=== PATIENT | female | born 1985 | race Caucasian/White ===

== ENCOUNTER 2020-12-02 09:30 | Inpatient (IN) | payer BC ==
[2020-12-02] MEDS ORDERED: DINOPROSTONE 10 MG INSERT.ER VAGINAL ONE (16:08)
[2020-12-02] MEDS ORDERED: ZOLPIDEM 5 MG TAB PO PRN (16:08)
[2020-12-02] MEDS: BUTORPHANOL 1 MG/ML 1 ML VIAL IV PRN (23:39)
[2020-12-03 00:28] LABS: Basophils % (A) 0 %; Eosinophils # (A) 0.1 k/uL (0-0.7); Eosinophils % (A) 1 %; HCT 39.3 % (34.0-46.0); Lymphocytes # (A) 2.5 k/uL (1.0-4.8); Lymphocytes % (A) 15 %; MCH 31.8 pg (25.0-35.0); MCHC 35.5 g/dL (31.0-37.0); MCV 89.4 fL (80.0-100.0); Mean Platelet Volume 7.6; Monocytes % (A) 6 %; Neutrophils # (A) 12.9 k/uL (1.3-7.7); Neutrophils % (A) 77 %; Platelet Count 322 k/uL (150-450); RBC 4.39 m/uL (3.80-5.40); RDW 14.3 % (11.5-15.5); WBC 16.8 k/uL (3.8-10.6)
[2020-12-03] MEDS: BUTORPHANOL 1 MG/ML 1 ML VIAL IV PRN ×3 (02:52→13:18)
[2020-12-03] MEDS ORDERED: METHYLERGONOVINE 0.2 MG/ML 1 ML AMP IM PRN (06:09)
[2020-12-03] MEDS ORDERED: CARBOPROST TROMETHAMINE 250 MCG/ML 1 ML AMP IM PRN (06:09)
[2020-12-03] MEDS ORDERED: TERBUTALINE 1 MG/ML VIAL SQ PRN (06:09)
[2020-12-03] MEDS ORDERED: LIDOCAINE 0.5% (PF) 5 MG/ML (50 ML SDV) SQ PRN (06:09)
[2020-12-03] MEDS ORDERED: OXYTOCIN 10 UNIT/ML 1 ML VIAL IM PRN (06:09)
[2020-12-03] MEDS ORDERED: OXYTOCIN 30 UNITS/500 ML NS 30 UNIT in SALINE 1 500ML.BAG IV SCH ×2 (06:15→18:15)
[2020-12-03] MEDS ORDERED: AMPICILLIN 2,000 MG in SODIUM CHLORIDE 0.9% 100 ML IVPB STA (07:40)
[2020-12-03] MEDS: LACTATED RINGERS 1,000 ML IV SCH ×3 (07:45→23:27)
[2020-12-03] MEDS ORDERED: SODIUM CHLORIDE 0.9% 100 ML BAG ONE (07:56)
[2020-12-03] MEDS ORDERED: ROPIVACAINE 5MG/ML 20ML VIAL ONE (07:56)
[2020-12-03] MEDS ORDERED: fentaNYL (PF) 50 MCG/ML 5 ML AMP ONE (07:56)
--- NOTE | 2020-12-03 10:31 | P.HPOB ---
History of Present Illness H&P Date: 12/02/20 Chief Complaint: induction of labor 35-year-old presents at 40 weeks and 1 day for induction of labor. Her cervix is 1 cm dilated, thick, -3 station. She is olvin irregularly. heart tones 135 with moderate variability and reactive. Review of Systems All systems: negative Constitutional: Denies chills, Denies fever Eyes: denies blurred vision, denies pain Ears, nose, mouth and throat: Denies headache, Denies sore throat Cardiovascular: Denies chest pain, Denies shortness of breath Respiratory: Denies cough Gastrointestinal: Denies abdominal pain, Denies diarrhea, Denies nausea, Denies vomiting Genitourinary: Denies dysuria, Denies hematuria Musculoskeletal: Denies myalgias Integumentary: Denies pruritus, Denies rash Neurological: Denies numbness, Denies weakness Psychiatric: Denies anxiety, Denies depression Endocrine: Denies fatigue, Denies weight change Past Medical History Past Medical History: No Reported History Additional Past Medical History / Comment(s): Obstetric history: This is her first and had care with me since the first trimester. She is seen [facility] for advanced maternal age. Blood type O+, antibodies negative, HIV nonreactive, rubella immune, RPR nonreactive, hepatitis B negative, normal AFP. Negative toxoplasma. GBS positive. History of Any Multi-Drug Resistant Organisms: None Reported Past Surgical History: No Surgical Hx Reported Past Anesthesia/Blood Transfusion Reactions: No Reported Reaction Past Psychological History: No Psychological Hx Reported Smoking Status: Never smoker Past Alcohol Use History: None Reported Past Drug Use History: None Reported - Past Family History Mother Family Medical History: Asthma Medications and Allergies Home Medications Medication Instructions Recorded Confirmed Type Pnv,Calcium 72/Iron/Folic Acid 1 each PO DAILY 12/02/20 12/02/20 History [ Plus Tablet] Allergies Allergy/AdvReac Type Severity Reaction Status Date / Time No Known Allergies Allergy Verified 12/02/20 16:08 Exam Osteopathic Statement: *. No significant issues noted on an osteopathic structural exam other than those noted in the History and Physical/Consult. Vital Signs Temp Pulse Resp BP 12/02/20 16:14 96.8 F L 100 14 131/68 Intake and Output 03/31/21 04/01/21 04/01/21 22:59 06:59 14:59 Other: # Voids 2 1 Weight 100.698 kg Heart: Regular rate and rhythm Lungs: Clear to auscultation bilaterally Abdomen: Soft, nontender Extremities: Negative Homans sign Results Result Diagrams: 12/02/20 23:45 Abnormal Lab Results - Last 24 Hours (Table) 12/02/20 Range/Units 23:45 WBC 16.8 H (3.8-10.6) k/uL Neutrophils # 12.9 H (1.3-7.7) k/uL Assessment and Plan (1) Encounter for induction of labor Current Visit: Yes Status: Acute Code(s): Z34.90 - ENCNTR FOR SUPRVSN OF NORMAL , UNSP, UNSP TRIMESTER SNOMED Code(s): 329141566 (2) Advanced maternal age (AMA) in Current Visit: Yes Status: Acute Code(s): EST3607 - SNOMED Code(s): 674108084 Plan: 1. Induction of labor with Cervidil tonight and then Pitocin and amniotomy in the morning. 2. Anticipate normal vaginal delivery
[2020-12-03] MEDS: AMPICILLIN 1,000 MG in SODIUM CHLORIDE 0.9% 50 ML IVPB SCH (12:50)
[2020-12-03] MEDS ORDERED: CITRIC ACID-SODIUM CITRATE 15 ML CUP PO ONE (16:56)
[2020-12-03] MEDS ORDERED: OXYTOCIN 10 UNIT/ML 1 ML VIAL ONE (17:15)
[2020-12-03] MEDS ORDERED: MORPHINE SULFATE (PF) 0.3 MG/0.3 ML SYR ONE (17:15)
[2020-12-03] MEDS ORDERED: KETOROLAC 15 MG/ML 1 ML VIAL ONE (17:15)
[2020-12-03] MEDS ORDERED: ONDANSETRON 4 MG/2 ML VIAL ONE (17:15)
[2020-12-03] MEDS ORDERED: fentaNYL (PF) 50 MCG/ML 2 ML AMP ONE (17:15)
[2020-12-03] MEDS ORDERED: LANOLIN CREAM 5 GM TUBE TOPICAL PRN (18:03)
[2020-12-03] MEDS ORDERED: METOCLOPRAMIDE 5 MG/ML 2 ML VIAL IVP PRN (18:03)
[2020-12-03] MEDS ORDERED: diphenhydrAMINE 50 MG/ML 1 ML VIAL IVP PRN ×2 (18:03)
[2020-12-03] MEDS ORDERED: ONDANSETRON 4 MG/2 ML VIAL IVP PRN (18:03)
[2020-12-03] MEDS ORDERED: NALOXONE 0.4 MG/ML 1 ML VIAL IV PRN (18:03)
[2020-12-03] MEDS ORDERED: diphenhydrAMINE 25 MG CAP PO PRN (18:03)
[2020-12-03] MEDS ORDERED: diphenhydrAMINE 50 MG CAP PO PRN (18:03)
--- NOTE | 2020-12-03 18:09 | P.OP ---
Date of Procedure: 12/03/20 Preoperative Diagnosis: 1. 40 weeks 2 days 2. arrest of descent Postoperative Diagnosis: 1. 40 weeks 2 days 2. arrest of descent Procedure(s) Performed: Primary low transverse Anesthesia: spinal Surgeon: Patrica Gastelum Sports Medicine Coordinator #1: Christopher Yanez Estimated Blood Loss (ml): 500 IV fluids (ml): 700 Urine output (ml): 300 Pathology: none sent Condition: stable Disposition: floor Indications for Procedure: 35-year-old presented at 40 weeks and 1 day for induction of labor. She was 1 cm dilated, 50% effaced, and -2 station. heart tones 135 with moderate variability and reactive. Cervidil was placed in the morning she was 3 cm, 80% effaced, -2 station. Pitocin was started and amniotomy performed. She progressed rather quickly to 8 cm at 1 PM. She was still 8 cm and -3 station at 5 PM despite adequate contractions. Informed consent was obtained and section was called. Operative Findings: Viable female infant, Apgars 9, 9, weight 7 lbs. 5 oz. Asynclitic lie. Normal uterus, tubes, ovaries Description of Procedure: Patient was taken to the operating room where spinal anesthesia was found be adequate. She was prepped and draped in normal sterile fashion in dorsal supine position with a leftward tilt. Pfannenstiel skin incision was made the scalpel and carried through to the underlying layer of fascia with the scalpel. Fascia was incised in midline and carried bilaterally with the Boateng scissors. The superior aspect of the fascial incision was grasped with [place] clamps elevated and the underlying rectus muscles dissected off with the Boateng's. Attention was then turned to inferior aspect of same incision which in a similar fashion was grasped tented up and the underlying rectus muscles dissected off with the Boateng's. The rectus muscles were the midline and the peritoneum was identified tented up and entered sharply with the scalpel. The incision was extended superiorly and inferiorly with good visualization of the bladder. The bladder blade was inserted and the vesicouterine peritoneum was incised the Metzenbaums then carried bilaterally and bladder flap created digitally. A low transverse incision was then made on the uterus with the scalpel. This was carried bilaterally and digital manner. 's head delivered atraumatically, nose and mouth bulb suctioned, cord clamped and cut, infant handed off to waiting nurses. Apgars 9,9, weight 7 lbs. 5 oz. Placenta delivered manually, intact with three-vessel cord. The uterus is exteriorized and cleared of all clots and debris. The uterine incision was closed with 0 Vicryl in a running locked fashion. Second layer of the same sutures used in imbricating fashion to obtain excellent hemostasis. Bladder flap was then reapproximated using 2-0 Vicryl in a running fashion. Both ovaries and tubes appeared normal. The uterus was placed back into the abdomen. The peritoneum was reapproximated using 2-0 Vicryl in a running fashion. The muscles were reapproximated using 2- 0 Vicryl in interrupted fashion. The fascia was reapproximated using 0 Vicryl in a running fashion. The subcutaneous tissues closed with 3-0 Vicryl running fashion. The skin was closed ranjit. Patient tolerated the procedure well, sponge and instrument counts were correct times 2 and she was taken to the recovery room in stable condition.
[2020-12-03] MEDS: SENNOSIDES-DOCUSATE SODIUM 1 EACH TAB PO SCH (19:29)
[2020-12-03] MEDS: ACETAMINOPHEN TAB 500 MG TAB PO SCH (19:29)
[2020-12-04] MEDS: KETOROLAC 15 MG/ML 1 ML VIAL IVP SCH ×3 (00:28→13:39)
[2020-12-04] MEDS: ACETAMINOPHEN TAB 500 MG TAB PO SCH ×3 (03:32→20:16)
[2020-12-04] MEDS: AMPICILLIN 1,000 MG in SODIUM CHLORIDE 0.9% 50 ML IVPB SCH (03:39)
[2020-12-04] MEDS: LACTATED RINGERS 1,000 ML IV SCH (05:14)
--- NOTE | 2020-12-04 06:03 | P.PN ---
Progress Note - Text Progress Note Date: 12/04/20 Postoperative day 1 status post section under spinal anesthesia and in trathecal Duramorph for postoperative analgesia.The patient is doing well, there is mild generalized skin itching. There are no other anesthesia related complications. The patient denies any paresthesia or weakness in the lower extremities. Further management as per the patient primary team.
[2020-12-04 06:19] LABS: Basophils % (A) 0 %; Eosinophils # (A) 0.1 k/uL (0-0.7); Eosinophils % (A) 0 %; HCT 31.8 % (34.0-46.0); Lymphocytes # (A) 2.6 k/uL (1.0-4.8); Lymphocytes % (A) 15 %; MCH 30.8 pg (25.0-35.0); MCHC 33.8 g/dL (31.0-37.0); MCV 91.1 fL (80.0-100.0); Mean Platelet Volume 7.2; Monocytes # (A) 0.8 k/uL (0-1.0); Monocytes % (A) 5 %; Neutrophils # (A) 14.2 k/uL (1.3-7.7); Neutrophils % (A) 79 %; Platelet Count 256 k/uL (150-450); RBC 3.49 m/uL (3.80-5.40); RDW 14.9 % (11.5-15.5); WBC 17.9 k/uL (3.8-10.6)
[2020-12-04 06:39] LABS: HGB 10.8 gm/dL (11.4-16.0)
--- NOTE | 2020-12-04 07:28 | P.PNOBGPC ---
Subjective - Subjective Principal diagnosis: S/P 1*LTCS POD #1 Interval history: Patient seen and examined. Her pain is well-controlled. Denies nausea, vomiting, chest pain, shortness of breath or any calf pain. Patient reports: Reports appetite normal, Reports voiding normally, Reports pain well controlled, Reports ambulating normally : doing well Objective - Vital Signs Latest vital signs: Vital Signs Temp Pulse Resp BP Pulse Ox 12/04/20 04:30 97.9 F 76 16 108/60 97 12/04/20 00:00 98.3 F 97 16 115/56 98 12/03/20 20:14 98.0 F 67 16 106/68 12/03/20 20:00 97.8 F 69 16 108/63 12/03/20 19:14 97.8 F 75 16 105/64 12/03/20 18:55 74 16 110/51 100 12/03/20 18:44 80 18 109/55 99 12/03/20 18:28 82 18 106/57 96 12/03/20 18:14 97.0 F L 90 16 130/60 97 Intake and Output 12/03/20 12/04/20 12/04/20 22:59 06:59 14:59 Intake Total 300 500 Output Total 1350 300 Balance -1050 200 Intake: IV 200 Oral 100 500 Output: Urine 850 300 Uretheral (Rodriguez) 200 300 Estimated Blood Loss 500 - Exam Lungs: bilateral: normal Chest: Normal S1, Normal S2 Extremities: Present: normal Abdomen: Present: normal appearance, soft. Absent: distention, tenderness Incision: Present: normal, dry, intact Uterus: Present: normal, firm - Labs Labs: Abnormal Lab Results - Last 24 Hours (Table) 12/04/20 Range/Units 00:44 WBC 17.9 H (3.8-10.6) k/uL RBC 3.49 L (3.80-5.40) m/uL Hgb 10.8 L D (11.4-16.0) gm/dL Hct 31.8 L (34.0-46.0) % Neutrophils # 14.2 H (1.3-7.7) k/uL Assessment and Plan (1) Encounter for induction of labor Current Visit: Yes Status: Resolved Code(s): Z34.90 - ENCNTR FOR SUPRVSN OF NORMAL , UNSP, UNSP TRIMESTER SNOMED Code(s): 611874918 (2) Advanced maternal age (AMA) in Current Visit: Yes Status: Resolved Code(s): OCR7843 - SNOMED Code(s): 405912579 (3) Status post primary low transverse section Current Visit: Yes Status: Acute Code(s): Z98.891 - HISTORY OF UTERINE SCAR FROM PREVIOUS SURGERY SNOMED Code(s): 748331808 Plan: 1. Increase ambulation 2. By mouth pain medication 3. Regular diet
[2020-12-04] MEDS: SENNOSIDES-DOCUSATE SODIUM 1 EACH TAB PO SCH ×2 (08:29→20:16)
[2020-12-04 20:46] VITALS: RESP 16
[2020-12-05] MEDS: ACETAMINOPHEN TAB 500 MG TAB PO SCH ×3 (00:08→06:12)
[2020-12-05] MEDS ORDERED: IBUPROFEN 600 MG TAB PO SCH (05:04)
[2020-12-05 08:00] VITALS: BP 107/70; PULSE 98; TEMP 98
[2020-12-05] MEDS: SENNOSIDES-DOCUSATE SODIUM 1 EACH TAB PO SCH (08:05)
--- NOTE | 2020-12-05 10:45 | P.DS ---
Providers Date of admission: 12/02/20 15:55 Expected date of discharge: 12/05/20 Attending physician: Patrica Gastelum Primary care physician: Stated None Hospital Course: Franchesca is doing very well postop day 2. She is ambulating, voiding, and she is tolerating her diet. She voices no complaints and is requesting discharge home today. As her ranjit and in less than 48 hours will plan to leave them in for another 2 days and she will have them removed in the office on Monday or Monday. She will call on Monday to schedule. Prescription for [place] and Motrin were forwarded to her pharmacy and she relates that she Alfredo has a breast pump. Otherwise on physical exam vital signs are stable and afebrile. Heart regular, lungs clear, extremities are without pain. Abdomen is soft, uterus is firm, incision is clean dry and intact and appears to be healing well. Assessment postoperative day 2. Plan as above. Discharge instructions were thoroughly reviewed and all questions were answered for her prior to her discharge. Patient Condition at Discharge: Good Plan - Discharge Summary New Discharge Prescriptions: New Ibuprofen [Motrin] 600 mg PO Q6HR PRN #30 tab PRN Reason: Pain HYDROcodone/APAP 5-325MG [[place] 5-325] 1 tab PO Q4HR PRN #30 tab PRN Reason: Pain No Action Pnv,Calcium 72/Iron/Folic Acid [ Plus Tablet] 1 each PO DAILY Discharge Medication List Pnv,Calcium 72/Iron/Folic Acid [ Plus Tablet] 1 each PO DAILY 12/02/20 [History] HYDROcodone/APAP 5-325MG [[place] 5-325] 1 tab PO Q4HR PRN #30 tab 12/05/20 [Rx] Ibuprofen [Motrin] 600 mg PO Q6HR PRN #30 tab 12/05/20 [Rx] Follow up Appointment(s)/Referral(s): Patrica Gastelum DO [Doctor of Osteopathic Medicine] - 12/07/20 Activity/Diet/Wound Care/Special Instructions: No heavy lifting, limit stairs and driving, and pelvic rest. If any high temperatures, heavy bleeding, or severe pain call my office. Follow up with Dr. Gastelum on Monday for staple removal Discharge Disposition: HOME SELF-CARE
== END 2020-12-05 13:37 | disposition home or self-care (01) | DRG 788 ==
LOC: 4FBP 15:55
PROVIDERS: ADMIT Obstetrics & Gynecology; ATTEND Obstetrics & Gynecology
PROC: 10907ZC Drainage of Amniotic Fluid, Therapeutic from Products of Conception, Via Natural or Artificial Opening (ICD-10-PCS; principal; 2020-12-03 17:20)
PROC: 3E033VJ Introduction of Other Hormone into Peripheral Vein, Percutaneous Approach (ICD-10-PCS; principal; 2020-12-03 17:20)
PROC: 0U7C7ZZ Dilation of Cervix, Via Natural or Artificial Opening (ICD-10-PCS; principal; 2020-12-03 17:20)
PROC: 10D00Z1 Extraction of Products of Conception, Low, Open Approach (ICD-10-PCS; principal; 2020-12-03 17:20)
DX: O99.824 Streptococcus B carrier state complicating childbirth (principal); O62.1 Secondary uterine inertia; Z3A.40 40 weeks gestation of pregnancy; Z37.0 Single live birth; Z79.899 Other long term (current) drug therapy; Z82.5 Family history of asthma and other chronic lower respiratory diseases
CPT/HCPCS: 85025; 86850; 86900; 86901

== ENCOUNTER → 2022-06-20 | Outpatient (CLI) | payer BC ==
[2022-06-20 19:04] LABS: Basophils # (A) 0.04 X 10*3/uL (0.00-0.10); Basophils % (A) 0.5 %; Eosinophils # (A) 0.13 X 10*3/uL (0.04-0.35); Eosinophils % (A) 1.5 %; HGB 12.9 g/dL (12.0-15.0); Immature Grans, Automated 0.4 %; Lymphocytes # (A) 2.14 X 10*3/uL (0.90-5.00); MCH 29.9 pg (27.0-32.0); MCHC 33.9 g/dL (32.0-37.0); Mean Platelet Volume 9.6 fL (9.5-12.2); Monocytes # (A) 0.59 X 10*3/uL (0.20-1.00); Monocytes % (A) 6.9 %; NRBC Per 100 WBC 0 /100 WBCS (0.0-0.0); Neutrophils # (A) 5.63 X 10*3/uL (1.80-7.70); Neutrophils % (A) 65.7 %; Platelet Count 287 X 10*3/uL (140-440); RBC 4.32 X 10*6/uL (4.10-5.20); RDW 14.2 % (11.5-14.5); WBC 8.56 X 10*3/uL (4.50-10.00)
== END | disposition home or self-care (01) ==
LOC: LABPAT 11:17
PROVIDERS: ATTEND Obstetrics & Gynecology
DX: Z01.812 Encounter for preprocedural laboratory examination (principal)
CPT/HCPCS: 85025

== ENCOUNTER 2022-06-23 05:57 | Day surgery (SDC) | payer BC ==
[~2022-06-23 05:57] MED LIST: DEXAMETHASONE SOD PHOSPHATE 4 MG/ML 1 ML VIAL IV ONE; LIDOCAINE 1% (10MG/ML) FOR IV START INTRADERMA PRN; MIDAZOLAM 2 MG/2 ML VIAL IV PRN; ONDANSETRON 4 MG/2 ML VIAL IVP ONE; Pre Op ABX Message 1 EACH MISC MISCELLANE ONE
--- NOTE | 2022-06-23 06:03 | P.HPOB ---
History of Present Illness H&P Date: 06/23/22 Chief Complaint: missed 36 year old presents for suction D&C for missed . Review of Systems All systems: negative Constitutional: Denies chills, Denies fever Eyes: denies blurred vision, denies pain Ears, nose, mouth and throat: Denies headache, Denies sore throat Cardiovascular: Denies chest pain, Denies shortness of breath Respiratory: Denies cough Gastrointestinal: Denies abdominal pain, Denies diarrhea, Denies nausea, Denies vomiting Genitourinary: Denies dysuria, Denies hematuria Musculoskeletal: Denies myalgias Integumentary: Denies pruritus, Denies rash Neurological: Denies numbness, Denies weakness Psychiatric: Denies anxiety, Denies depression Endocrine: Denies fatigue, Denies weight change Past Medical History Past Medical History: No Reported History History of Any Multi-Drug Resistant Organisms: None Reported Past Surgical History: Section Past Anesthesia/Blood Transfusion Reactions: No Reported Reaction Additional Past Anesthesia/Blood Transfusion Reaction / Comment(s): epidural didnt work during c section had spinal. Smoking Status: Never smoker - Past Family History Mother Family Medical History: Asthma Father Family Medical History: No Reported History Medications and Allergies Home Medications Medication Instructions Recorded Confirmed Type Ibuprofen [Motrin] 600 mg PO Q6HR PRN #30 tab 12/05/20 06/22/22 Rx Esomeprazole Magnesium [NexIUM 20 mg PO DAILY PRN 06/22/22 06/22/22 History 24Hr] Allergies Allergy/AdvReac Type Severity Reaction Status Date / Time No Known Allergies Allergy Verified 06/22/22 08:09 Exam Osteopathic Statement: *. No significant issues noted on an osteopathic structural exam other than those noted in the History and Physical/Consult. Intake and Output 06/22/22 06/22/22 06/23/22 14:59 22:59 06:59 Other: Weight 90.718 kg HEart: RRR Lungs: CTAB Abdomen: soft, nontender Extremeties: neg dawn's Assessment and Plan (1) Missed Current Visit: Yes Status: Acute Code(s): O02.1 - MISSED SNOMED Code(s): 51914929 Plan: 1. suction D&C
[2022-06-23] MEDS: LACTATED RINGERS 1,000 ML IV SCH ×2 (06:40→07:02)
[2022-06-23] MEDS ORDERED: fentaNYL (PF) 50 MCG/ML 2 ML AMP ONE (06:58)
[2022-06-23] MEDS ORDERED: KETOROLAC 15 MG/ML 1 ML VIAL ONE (06:58)
[2022-06-23] MEDS ORDERED: MIDAZOLAM 2 MG/2 ML VIAL ONE (06:58)
[2022-06-23] MEDS ORDERED: PROPOFOL 10 MG/ML 20 ML VIAL IV ONE (06:58)
[2022-06-23] MEDS ORDERED: LIDOCAINE 2% INJ 20 MG/ML (2 ML VIAL) ONE (06:58)
[2022-06-23] MEDS ORDERED: HYDROmorphone 0.5 MG/0.5 ML SYRINGE IVP PRN (07:00)
[2022-06-23 07:33] VITALS: RESP 16; TEMP 98.4
--- NOTE | 2022-06-23 07:38 | P.OP ---
Date of Procedure: 06/23/22 Preoperative Diagnosis: 1. missed Postoperative Diagnosis: 1. missed Procedure(s) Performed: Suction D&C Anesthesia: MAC Surgeon: Patrica Gastelum Estimated Blood Loss (ml): 100 IV fluids (ml): 300 Urine output (ml): 15 Pathology: other (Products of conception) Condition: stable Disposition: PACU Description of Procedure: Patient was taken to the operating room and general anesthesia was obtained without difficulty. She is prepped and draped in normal sterile fashion dorsal lithotomy position, legs placed in candycane stirrups. Bladder was drained of all urine. Weighted speculum placed in the vagina and the anterior lip of the cervix was grasped with an [place] clamp. The cervix was dilated to #8 Hegar dilator. A #8 curved suction curet was introduced into the uterus and passed several times removing tissue and blood. Sharp curet was gently used to ensure all tissue had been removed. The suction curet was introduced a few more times. Hemostasis was assured. Patient to our procedure well. Sponge initial counts correct 2. She was taken to recovery in stable condition.
[2022-06-23 08:22] VITALS: BP 125/76; PULSE 99
== END 2022-06-23 08:45 | disposition home or self-care (01) ==
LOC: OR 05:57
PROVIDERS: ATTEND Obstetrics & Gynecology
DX: O02.1 Missed abortion (principal); Z98.891 History of uterine scar from previous surgery; Z82.5 Family history of asthma and other chronic lower respiratory diseases; Z79.899 Other long term (current) drug therapy
CPT/HCPCS: 86900; 86901; 88305; 86850; 59820; J2250; J1100; J2405; J3010; J1885; J2704; J2001

== ENCOUNTER 2023-11-01 06:00 | Inpatient (IN) | payer BC, OTHER ==
[2023-10-30 16:12] VITALS: BMI 37.4
[2023-11-01] MEDS ORDERED: METHYLERGONOVINE 0.2 MG/ML 1 ML AMP IM PRN (06:17)
[2023-11-01] MEDS ORDERED: TRANEXAMIC 1,000 MG/100ML-NACL 1,000 MG in EMPTY BAG 1 BAG IV PRN (06:17)
[2023-11-01] MEDS ORDERED: OXYTOCIN 10 UNIT/ML 1 ML VIAL IM PRN (06:17)
[2023-11-01] MEDS ORDERED: miSOPROStoL 200 MCG TAB PO PRN (06:17)
[2023-11-01] MEDS ORDERED: CARBOPROST TROMETHAMINE 250 MCG/ML 1 ML AMP IM PRN (06:17)
[2023-11-01 06:43] LABS: Basophils % (A) 0 %; Eosinophils # (A) 0.1 k/uL (0-0.7); Eosinophils % (A) 1 %; HCT 35.9 % (34.0-46.0); HGB 12.1 gm/dL (11.4-16.0); Lymphocytes # (A) 2.2 k/uL (1.0-4.8); Lymphocytes % (A) 18 %; MCH 30.7 pg (25.0-35.0); MCHC 33.8 g/dL (31.0-37.0); MCV 90.9 fL (80.0-100.0); Mean Platelet Volume 7.3; Monocytes # (A) 0.7 k/uL (0-1.0); Monocytes % (A) 6 %; Neutrophils # (A) 8.9 k/uL (1.3-7.7); Neutrophils % (A) 73 %; Platelet Count 263 k/uL (150-450); RBC 3.95 m/uL (3.80-5.40); RDW 14.3 % (11.5-15.5); WBC 12.3 k/uL (3.8-10.6)
[2023-11-01] MEDS: CITRIC ACID-SODIUM CITRATE 15 ML CUP PO ONE (07:45)
--- NOTE | 2023-11-01 07:48 | P.HPOB ---
History of Present Illness H&P Date: 11/01/23 Chief Complaint: repeat low transverse with TL 38 year old presents at 39 weeks for repeat low transverse with tubal ligation. Review of Systems All systems: negative Constitutional: Denies chills, Denies fever Eyes: denies blurred vision, denies pain Ears, nose, mouth and throat: Denies headache, Denies sore throat Cardiovascular: Denies chest pain, Denies shortness of breath Respiratory: Denies cough Gastrointestinal: Denies abdominal pain, Denies diarrhea, Denies nausea, Denies vomiting Genitourinary: Denies dysuria, Denies hematuria Musculoskeletal: Denies myalgias Integumentary: Denies pruritus, Denies rash Neurological: Denies numbness, Denies weakness Psychiatric: Denies anxiety, Denies depression Endocrine: Denies fatigue, Denies weight change Past Medical History Past Medical History: No Reported History Additional Past Medical History / Comment(s): heart murmur,varicose veins, missed AB,. Obstetric history: Blood type O+, antibodies negative, HIV nonreactive, rubella immune, RPR nonreactive, hepatitis B negative, normal AFP. Negative toxoplasma. History of Any Multi-Drug Resistant Organisms: None Reported Past Surgical History: Section Additional Past Surgical History / Comment(s): D&C Past Anesthesia/Blood Transfusion Reactions: No Reported Reaction Additional Past Anesthesia/Blood Transfusion Reaction / Comment(s): no hx blood transfusion Past Psychological History: Anxiety Smoking Status: Never smoker Past Alcohol Use History: None Reported Past Drug Use History: None Reported - Past Family History Mother Family Medical History: Asthma Father Family Medical History: No Reported History Medications and Allergies Home Medications Medication Instructions Recorded Confirmed Type RX: FLUoxetine HCL 20 mg PO HS 10/30/23 11/01/23 History Vit No.179/Iron/Folic 1 each PO 11/01/23 History [ Tablet] Allergies Allergy/AdvReac Type Severity Reaction Status Date / Time No Known Allergies Allergy Verified 11/01/23 06:15 Exam Osteopathic Statement: *. No significant issues noted on an osteopathic structural exam other than those noted in the History and Physical/Consult. Vital Signs Temp Pulse Resp BP Pulse Ox 11/01/23 06:15 99.1 F 98 16 126/74 97 Intake and Output 10/31/23 11/01/2324 22:59 06:59 14:59 Other: Weight 98.883 kg Heart: Regular rate and rhythm Lungs: Clear to auscultation bilaterally Abdomen: Soft, nontender Extremities: Negative Homans sign Results Result Diagrams: 11/01/23 06:20 Abnormal Lab Results - Last 24 Hours (Table) 11/01/23 Range/Units 06:20 WBC 12.3 H (3.8-10.6) k/uL Neutrophils # 8.9 H (1.3-7.7) k/uL Assessment and Plan (1) Previous section Current Visit: Yes Status: Acute Code(s): Z98.891 - HISTORY OF UTERINE SCAR FROM PREVIOUS SURGERY SNOMED Code(s): 823835847 (2) 39 weeks gestation of Current Visit: Yes Status: Acute Code(s): Z3A.39 - 39 WEEKS GESTATION OF SNOMED Code(s): 99240814 (3) Advanced maternal age (AMA), 40 years or greater Current Visit: Yes Status: Acute Code(s): OVA7298 - SNOMED Code(s): 087721993 (4) Family planning Current Visit: Yes Status: Acute Code(s): Z30.09 - ENCOUNTER FOR OTH GENERAL CNSL AND ADVICE ON CONTRACEPTION SNOMED Code(s): 584092786 Plan: 1. repeat low transverse with tubal ligation
[2023-11-01] MEDS ORDERED: OXYTOCIN 30 UNITS/500 ML NS BAG IV ONE (07:55)
[2023-11-01] MEDS ORDERED: NALBUPHINE 10 MG/ML (10 ML MDV) ONE (07:55)
[2023-11-01] MEDS ORDERED: MORPHINE SULFATE (PF) 0.3 MG/0.3 ML SYR ONE (07:55)
[2023-11-01] MEDS ORDERED: KETOROLAC 15 MG/ML 1 ML VIAL ONE (07:55)
[2023-11-01] MEDS ORDERED: ONDANSETRON 4 MG/2 ML VIAL ONE (07:55)
[2023-11-01] MEDS ORDERED: diphenhydrAMINE 25 MG CAP PO PRN (08:46)
[2023-11-01] MEDS ORDERED: ZOLPIDEM 5 MG TAB PO PRN (08:46)
[2023-11-01] MEDS ORDERED: NALOXONE 0.4 MG/ML 1 ML VIAL IV PRN (08:46)
[2023-11-01] MEDS ORDERED: METOCLOPRAMIDE 5 MG/ML 2 ML VIAL IVP PRN (08:46)
[2023-11-01] MEDS ORDERED: LANOLIN CREAM 1 GM TUBE TOPICAL PRN (08:46)
[2023-11-01] MEDS ORDERED: diphenhydrAMINE 50 MG/ML 1 ML VIAL IVP PRN ×2 (08:46)
[2023-11-01] MEDS ORDERED: diphenhydrAMINE 50 MG CAP PO PRN (08:46)
[2023-11-01] MEDS ORDERED: ONDANSETRON 4 MG/2 ML VIAL IVP PRN (08:46)
--- NOTE | 2023-11-01 08:46 | P.OP ---
Date of Procedure: 11/01/23 Preoperative Diagnosis: 1. at 39 weeks 2. previous 3. family planning Postoperative Diagnosis: same Procedure(s) Performed: Repeat low transverse with tubal ligation Anesthesia: spinal Surgeon: Patrica Gastelum Package Collector #1: Christopher Yanez Estimated Blood Loss (ml): 820 IV fluids (ml): 700 Urine output (ml): 150 Pathology: other (segments of bilateral fallopian tubes) Condition: stable Disposition: floor Operative Findings: Normal uterus, tubes, ovaries. Viable female, Apgars 8, 9, weight 7 lbs. 7 oz. Description of Procedure: Patient was taken to the operating room where spinal anesthesia was found be adequate. She was prepped and draped in normal sterile fashion in dorsal supine position with a leftward tilt. Pfannenstiel skin incision was made the scalpel and carried through to the underlying layer of fascia with the scalpel. Fascia was incised in midline and carried bilaterally with the Boateng scissors. The superior aspect of the fascial incision was grasped with [place] clamps elevated and the underlying rectus muscles dissected off with the Boateng's. Attention was then turned to inferior aspect of same incision which in a similar fashion was grasped tented up and the underlying rectus muscles dissected off with the Boateng's. The rectus muscles were the midline and the peritoneum was identified tented up and entered sharply with the scalpel. The incision was extended superiorly and inferiorly with good visualization of the bladder. The bladder blade was inserted and the vesicouterine peritoneum was incised the Met zenbaums then carried bilaterally and bladder flap created digitally. A low transverse incision was then made on the uterus with the scalpel. This was carried bilaterally and digital manner. Infant's head delivered atraumatically, nose and mouth bulb suctioned, cord clamped and cut, infant handed off to waiting nurses. Apgars 8,9, weight 7 lbs. 7 oz. Placenta delivered manually, intact with three-vessel cord. The uterus is exteriorized and cleared of all clots and debris. The uterine incision was closed with 0 Vicryl in a running locked fashion. Second layer of the same sutures used in imbricating fashion to obtain excellent hemostasis. Both ovaries and tubes appeared normal. The right fallopian tube was grasped with a hemostat and a window was made in the mesosalpinx with the Bovie. The right fallopian tube was doubly ligated and a segment was removed. Pedicles were cauterized with the Bovie. The left fallopian tube was grasped with hemostat and a window was made in the mesosalpinx with the Bovie. The left fallopian tube was doubly ligated and a segment was removed. Pedicles were cauterized with the Bovie. The uterus was placed back into the abdomen. The peritoneum was reapproximated using 2-0 Vicryl in a running fashion. The muscles were reapproximated using 2-0 Vicryl in interrupted fashion. The fascia was reapproximated using 0 Vicryl in a running fashion. The subcutaneous tissues closed with 3-0 Vicryl running fashion. The skin was closed ranjit. Patient tolerated the procedure well, sponge and instrument counts were correct times 2 and she was taken to the recovery room in stable condition.
[2023-11-01] MEDS: OXYTOCIN 30 UNITS/500 ML NS 30 UNIT in SALINE 1 500ML.BAG IV SCH (08:57)
[2023-11-01] MEDS ORDERED: OXYTOCIN 30 UNITS/500 ML NS 30 UNIT in SALINE 1 500ML.BAG IV SCH (09:00)
[2023-11-01] MEDS: ACETAMINOPHEN TAB 500 MG TAB PO SCH (12:34)
[2023-11-01] MEDS: LACTATED RINGERS 1,000 ML IV SCH (12:35)
[2023-11-01] MEDS: KETOROLAC 15 MG/ML 1 ML VIAL IVP SCH (15:49)
[2023-11-01] MEDS: IBUPROFEN 600 MG TAB PO SCH (16:17)
[2023-11-01] MEDS: SENNOSIDES-DOCUSATE SODIUM 1 EACH TAB PO SCH (21:48)
[2023-11-02 05:56] LABS: Basophils # (A) 0.1 k/uL (0-0.2); Basophils % (A) 1 %; Eosinophils # (A) 0.2 k/uL (0-0.7); Eosinophils % (A) 2 %; HCT 29.2 % (34.0-46.0); HGB 10.1 gm/dL (11.4-16.0); Lymphocytes # (A) 1.8 k/uL (1.0-4.8); Lymphocytes % (A) 16 %; MCH 32.2 pg (25.0-35.0); MCHC 34.7 g/dL (31.0-37.0); MCV 92.8 fL (80.0-100.0); Mean Platelet Volume 8.6; Monocytes # (A) 0.6 k/uL (0-1.0); Monocytes % (A) 6 %; Neutrophils # (A) 8.1 k/uL (1.3-7.7); Neutrophils % (A) 74 %; Platelet Count 187 k/uL (150-450); RBC 3.15 m/uL (3.80-5.40); RDW 14.9 % (11.5-15.5)
--- NOTE | 2023-11-02 07:46 | P.PNOBGPC ---
Subjective - Subjective Principal diagnosis: S/P repeat low transverse with tubal ligation postop day1 Interval history: Pt seen and examined. Denies nausea, vomiting, chest pain, shortness of breath or calf pain. Patient reports: Reports appetite normal, Reports voiding normally, Reports pain well controlled, Reports ambulating normally : doing well Objective - Vital Signs Latest vital signs: Vital Signs Temp Pulse Resp BP Pulse Ox 11/02/23 03:47 98.0 F 65 15 94/61 96 11/02/23 00:00 98.1 F 80 15 95/54 96 11/01/23 19:10 98.2 F 67 15 106/61 11/01/23 15:50 97.9 F 72 16 105/58 96 11/01/23 10:46 98.4 F 67 16 94/53 97 11/01/23 10:31 74 16 83/49 97 11/01/23 10:16 70 16 88/60 97 11/01/23 10:01 70 16 98 11/01/23 09:46 73 16 97/51 96 11/01/23 09:31 67 16 98/56 97 11/01/23 09:16 77 16 91/52 97 11/01/23 09:01 72 16 111/57 98 11/01/23 08:46 98.3 F 63 16 109/56 Intake and Output 11/01/23 11/02/23 11/02/23 22:59 06:59 14:59 Intake Total 1280 Output Total 1900 400 Balance -620 -400 Intake: IV 800 Oral 480 Output: Urine 1900 400 Uretheral (Rodriguez) 800 Other: # Voids 1 1 - Exam Lungs: bilateral: normal Chest: Normal S1, Normal S2 Extremities: Present: normal Abdomen: Present: normal appearance, soft. Absent: distention, tenderness Incision: Present: normal, dry, intact Uterus: Present: normal, firm - Labs Labs: Abnormal Lab Results - Last 24 Hours (Table) 11/02/23 Range/Units 05:43 WBC 11.0 H (3.8-10.6) k/uL RBC 3.15 L (3.80-5.40) m/uL Hgb 10.1 L (11.4-16.0) gm/dL Hct 29.2 L (34.0-46.0) % Neutrophils # 8.1 H (1.3-7.7) k/uL Assessment and Plan (1) Previous section Current Visit: Yes Status: Resolved Code(s): Z98.891 - HISTORY OF UTERINE SCAR FROM PREVIOUS SURGERY SNOMED Code(s): 717155752 (2) 39 weeks gestation of Current Visit: Yes Status: Resolved Code(s): Z3A.39 - 39 WEEKS GESTATION OF SNOMED Code(s): 17660567 (3) Advanced maternal age (AMA), 40 years or greater Current Visit: Yes Status: Resolved Code(s): JKH4776 - SNOMED Code(s): 374893841 (4) Family planning Current Visit: Yes Status: Resolved Code(s): Z30.09 - ENCOUNTER FOR OT GENERAL CNSL AND ADVICE ON CONTRACEPTION SNOMED Code(s): 956142305 (5) Status post repeat low transverse section Current Visit: Yes Status: Acute Code(s): Z98.891 - HISTORY OF UTERINE SCAR FROM PREVIOUS SURGERY SNOMED Code(s): 627341665 (6) Status post tubal ligation at time of delivery, current hosp Current Visit: Yes Status: Acute Code(s): O80 - ENCOUNTER FOR FULL-TERM UNCOMPLICATED DELIVERY; Z30.2 - ENCOUNTER FOR STERILIZATION SNOMED Code(s): 24468091741188 Plan: 1. increase ambulation 2. cont po care
--- NOTE | 2023-11-02 08:17 | P.PN ---
Progress Note - Text Progress Note Date: 11/02/23 Ms. Lazar is a 38 -year-old female had a history of under spinal analgesia with Astramorph 300 g for postop pain. Today patient is comfortable sitting in her bed. Today patient rated her pain level 2 out of 10 in severity. Denied any fever, drowsiness, confusion. Denied any weakness, tingling sensation in her lower extremities. Denied any bowel or bladder problems. She had mild itching yesterday but resolved today. Moving all extremities without any difficulty. Able to walk without any difficulties. Vitals: Hemodynamically stable Continue oral pain medication as per primary team.
[2023-11-02] MEDS: SIMETHICONE 80 MG CHEWABLE PO PRN (13:40)
[2023-11-03 01:14] VITALS: RESP 16
--- NOTE | 2023-11-03 07:47 | P.DS ---
Providers Date of admission: 11/01/23 06:00 Expected date of discharge: 11/03/23 Attending physician: Patrica Gastelum Primary care physician: Stated None - Discharge Diagnosis(es) (1) Previous section Current Visit: Yes Status: Resolved (2) 39 weeks gestation of Current Visit: Yes Status: Resolved (3) Advanced maternal age (AMA), 40 years or greater Current Visit: Yes Status: Resolved (4) Family planning Current Visit: Yes Status: Resolved (5) Status post repeat low transverse section Current Visit: Yes Status: Acute (6) Status post tubal ligation at time of delivery, current hosp Current Visit: Yes Status: Acute Hospital Course: Patient presented for repeat low transverse with tubal ligation. Patient underwent procedure without complication. course was uneventful. She denies nausea, vomiting, chest pain, shortness of breath or calf pain. Her pain is well-controlled. Ambulating and voiding without difficulty. Patient will be discharged home day #2 in stable condition to follow-up with me in one week. Plan - Discharge Summary Discharge Rx Participant: No New Discharge Prescriptions: No Action RX: FLUoxetine HCL 20 mg PO HS Vit No.179/Iron/Folic [ Tablet] 1 each PO Discharge Medication List RX: FLUoxetine HCL 20 mg PO HS 10/30/23 [History] Vit No.179/Iron/Folic [ Tablet] 1 each PO 11/01/23 [History] Follow up Appointment(s)/Referral(s): Patrica Gastelum DO [Doctor of Osteopathic Medicine] - 6 Weeks (Post Op appointment 11-13-23 at 1:30pm. Contact [facility] for [address] Gastelum) Discharge Disposition: HOME SELF-CARE
[2023-11-03 08:14] VITALS: BP 104/59; PULSE 81; TEMP 98
== END 2023-11-03 15:30 | disposition home or self-care (01) | DRG 785 ==
LOC: 4FBP 06:00
PROVIDERS: ADMIT Obstetrics & Gynecology; ATTEND Obstetrics & Gynecology
PROC: 0UB70ZZ Excision of Bilateral Fallopian Tubes, Open Approach (ICD-10-PCS; 2023-11-01)
PROC: 10D00Z1 Extraction of Products of Conception, Low, Open Approach (ICD-10-PCS; principal; 2023-11-01 08:00)
DX: O34.211 Maternal care for low transverse scar from previous cesarean delivery (principal); O99.344 Other mental disorders complicating childbirth; O99.73 Diseases of the skin and subcutaneous tissue complicating the puerperium; L29.9 Pruritus, unspecified; F41.9 Anxiety disorder, unspecified; Z30.2 Encounter for sterilization; Z37.0 Single live birth; Z3A.39 39 weeks gestation of pregnancy
CPT/HCPCS: 85025; 86850; 86900; 86901; 88302

== ENCOUNTER → 2024-12-20 | Outpatient (CLI) | payer BC, OTHER ==
--- NOTE | 2024-12-23 08:00 | MM ---
Reason for Exam: Screening (asymptomatic). Patient History: Menarche at age 11. First Full-Term at age 34. Late child-bearing (after 30). Premenopausal. Maternal grandmother had breast cancer. Risk Values: Shannan 5 year model risk: 0.8%. NCI Lifetime model risk: 13.5%. Tissue Density: There are scattered areas of fibroglandular density. Findings: Analyzed By CAD. There is no suspicious group of microcalcifications or new suspicious mass in either breast. Overall Assessment: Negative, BI-RAD 1 Management: Screening Mammogram of both breasts in 1 year. . Patient should continue monthly self-breast exams. A clinical breast exam by your physician is recommended on an annual basis. This exam should not preclude additional follow-up of suspicious palpable abnormalities. Note on Shannan scores and lifetime risk: 1. A Shannan score greater than 3% is considered moderate risk. If this is the case, consider specialist referral to assess eligibility for a risk reducing agent. 2. If overall lifetime risk for the development of breast cancer is 20% or higher, the patient may qualify for future screening with alternating mammogram and breast MRI. [facility], , 12/23/2024 7:57 AM. Electronically signed and approved by: Zach Benjamin M.D. Radiolog[facility]
== END | disposition home or self-care (01) ==
LOC: RADMAMWWP 15:01
PROVIDERS: ATTEND Obstetrics & Gynecology
DX: Z12.31 Encounter for screening mammogram for malignant neoplasm of breast (principal); R92.323 Mammographic fibroglandular density, bilateral breasts; Z80.3 Family history of malignant neoplasm of breast
CPT/HCPCS: 77063; 77067